=== PATIENT | male | born 1975 | race Hispanic/Latino ===

== ENCOUNTER 2018-01-31 13:11 | Emergency (ER) | payer SELFPAY ==
[~2018-01-31] VITALS: Ht 180.3 cm; Wt 113.4 kg
[2018-01-31 13:52] LABS: BASOPHILS % 0.3 % (0.0-1.0); EOSINOPHILS # (AUTO) 0.1 (0.0-0.4); EOSINOPHILS % 0.8 % (0.0-6.0); HEMATOCRIT 41.2 % (38.2-49.6); HEMOGLOBIN 14.4 g/dL (14.0-18.0); LYMPHOCYTES # (AUTO) 2.6 (1.0-3.2); LYMPHOCYTES % 22.2 % (18.0-39.1); MEAN CORPUSCULAR HEMOGLOBIN 29.7 pg (28-32); MEAN CORPUSCULAR VOLUME 84.9 fL (81-99); MONOCYTES # (AUTO) 0.7 (0.2-0.8); MONOCYTES % 6.4 % (4.4-11.3); NEUTROPHILS # (AUTO) 8.1 (2.1-6.9); NEUTROPHILS % 69.8 % (38.7-80.0); PLATELET COUNT 240 x10e3/uL (140-360); RED BLOOD COUNT 4.85 x10e6/uL (4.3-5.7)
[2018-01-31 14:09] LABS: ANION GAP 14.4 mmol/L (8-16); BLOOD UREA NITROGEN 12 mg/dL (7-26); BUN/CREATININE RATIO 12 (6-25); CALCIUM 9.3 mg/dL (8.4-10.2); CARBON DIOXIDE 22 mmol/L (22-29); CHLORIDE 106 mmol/L (98-107); CREATININE, SERUM 1.02 mg/dL (0.72-1.25); EST GLOMERULAR FILTRATION RATE > 60 ML/MIN (60-); GLUCOSE 94 mg/dL (74-118); POTASSIUM 3.4 mmol/L (3.5-5.1); SODIUM 139 mmol/L (136-145)
--- NOTE | 2018-01-31 15:04 | Diagnostic Imaging Report ---
PROCEDURE:X-RAY LEFT FOOT, COMPLETE COMPARISON:None. INDICATIONS:PAIN IN RIGHT FOOT, OSTEOMYELITIS FINDINGS: Normal mineralization. No acute displaced fracture or dislocation. Cystic degenerative changes in the first toe metatarsal head. No areas of cortical erosion or destruction. No lytic or blastic lesions. Tiny anterior calcaneal enthesophyte. Moderate soft tissue swelling in the foot, predominantly in the dorsal aspect. CONCLUSION: No areas of cortical erosion or destruction to suggest osteomyelitis. Moderate soft tissue swelling in the foot, predominantly in the dorsal aspect. Atul Guajardo M.D. Dictated by: Atul Guajardo M.D. on 01/31/2018 at 15:06 Electronically approved by: Atul Guajardo M.D. on 01/31/2018 at 15:06
== END 2018-01-31 17:38 | disposition home or self-care (01) ==
LOC: ER 13:11
DX: L03.116 Cellulitis of left lower limb (principal); I10 Essential (primary) hypertension
CPT/HCPCS: 36415; 80048; 85025; 99283

== ENCOUNTER 2022-10-04 19:58 | Emergency (ER) | payer OTHER ==
[~2022-10-04] VITALS: Ht 180.3 cm; Wt 124.7 kg
[2022-10-04] MEDS ORDERED: PREDNISONE 20 MG TAB PO ONE (22:00)
[2022-10-04] MEDS ORDERED: PREDNISONE 20 MG TAB ONE (22:14)
[2022-10-04] MEDS ORDERED: PREDNISONE20 MG PO (22:32)
[2022-10-04] MEDS ORDERED: ULTRAM 50MG50 MG PO (22:33)
[2022-10-04 22:47] VITALS: BP 142/85
== END 2022-10-04 22:47 | disposition home or self-care (01) ==
LOC: FSED 20:57
DX: M25.561 Pain in right knee (principal); M25.461 Effusion, right knee; M10.9 Gout, unspecified; Z87.442 Personal history of urinary calculi
CPT/HCPCS: 36415; 82948; 99283; J7512